=== PATIENT | female | born 1975 | race Caucasian/White ===

== ENCOUNTER 2017-01-17 17:21 | Emergency (ER) | payer OTHER ==
[~2017-01-17 17:21] MED LIST: FISH OIL 10001000 MG PO; LOPRESSOR 25 MG25 MG PO
[2017-01-17 21:16] LABS: HEMOGLOBIN 13.7 gm/dl (12.3-15.3); RED BLOOD COUNT 4.03 M/UL (4.00-5.10); WHITE BLOOD COUNT 17.9 K/UL (4.5-11.0)
[2017-01-17 22:21] LABS: BUN/CREATININE RATIO 10 (0-10)
[2017-06-20] MEDS ORDERED: CHANTIX1 MG PO (21:37)
[2017-06-20] MEDS ORDERED: LIPITOR TAB 2020 MG PO (21:38)
[2017-06-20] MEDS ORDERED: PREDNISONE 10 M10 MG PO (21:38)
[2017-06-20] MEDS ORDERED: PREDNISONE10 MG PO (21:38)
[2017-06-20] MEDS ORDERED: CETIRIZINE HCL10 MG PO (21:39)
[2017-06-20] MEDS ORDERED: VITAMIN D-32000 UNIT PO (21:39)
[2017-06-20] MEDS ORDERED: SPIRIVA18 MCG INH (21:40)
[2017-06-20] MEDS ORDERED: BUSPIRONE HCL15 MG PO (21:41)
[2017-06-20] MEDS ORDERED: MYCOSTATIN100000 UTS PO (21:54)
[2017-06-22] MEDS ORDERED: ROBITUSSIN DM473 ML PO (11:41)
[2017-06-22] MEDS ORDERED: MEDROL DOSEPAK 24 MG PO (11:42)
[2017-06-22] MEDS ORDERED: LEVAQUIN750 MG PO (11:42)
== END 2017-01-17 23:10 | disposition home or self-care (01) ==
LOC: ER1 17:21
PROVIDERS: Specialist/Technologist Athletic Trainer
DX: J18.9 Pneumonia, unspecified organism (principal); D72.829 Elevated white blood cell count, unspecified; E87.6 Hypokalemia; J45.909 Unspecified asthma, uncomplicated; J44.9 Chronic obstructive pulmonary disease, unspecified; F17.200 Nicotine dependence, unspecified, uncomplicated; Z88.1 Allergy status to other antibiotic agents; Z88.5 Allergy status to narcotic agent; Z79.899 Other long term (current) drug therapy
CPT/HCPCS: 36415; 36600; 71250; 80053; 82550; 82553; 82803; 83874; 84484; 85025; 93005; 94640; 94664; 96365; 96366; 96375; 99285; J1956; J2405; J7030

== ENCOUNTER 2017-02-20 07:29 | Observation (INO) | payer OTHER ==
[~2017-02-20] VITALS: Ht 165.1 cm; Wt 65.8 kg
[2017-02-20 08:51] LABS: HEMOGLOBIN 13.7 gm/dl (12.3-15.3); RED BLOOD COUNT 4.13 M/UL (4.00-5.10); WHITE BLOOD COUNT 17.8 K/UL (4.5-11.0)
[2017-02-20 09:17] LABS: BUN/CREATININE RATIO 13 (0-10)
--- NOTE | 2017-02-20 19:00 | NUR ---
SHIFT SUMMARY NOTE: RECEIVED IN SHIFT REPORT PT HAD ARRIVED TO FLOOR APPROX 1830, AND ADMISSION PROCESS HAD NOT BEEN STARTED, AND NO ORDERS HAD BEEN TAKEN OFF AT PRESENT. 7A NURSE STATED THAT PT HAD REQUESTED PAIN MEDICATION UPON ARRIVAL TO FLOOR, AND THAT SHE HAD EXPLAINED IT WOULD BE A LITTLE BIT BEFORE ORDERS WERE TAKEN OFF. 1900- IN ROOM TO ASSESS PT AND BEGIN ADMISSION PROCESS, PT NOT IN ROOM AT THIS TIME. 1914- REVIEWED ORDERS ON CHART, NOTED NO MEDICATIONS FOR PAIN, AND THAT MED REC NOT ADDRESSED PER MD. CALLED DR SOLIS, ADMITTING MD, AND RECONCILED HOME MEDS. AT THIS TIME, ALSO INFORMED MD OF PT REQUESTING PAIN MEDICATION AND ASKED FOR AN ORDER FOR PAIN MED. MD STATED THAT HE WOULD NOT GIVE HER ANYTHING AT THIS TIME UNLESS IT WAS ALREADY ON HER HOME MEDICATION LIST. 1929- PT BACK IN ROOM, NOTED STANDING AT BEDSIDE ARRANGING BELONGINGS IN BAG. ASSESSMENT AND ADMISSION HX COMPLETED AT THIS TIME. NO DISTRESS NOTED. PT SIGNED SMOKING CONSENT AT THIS TIME AND MADE AWARE OF PURPOSE. PT THEN INQUIRED ABOUT PAIN MEDICATION, INFORMED OF CONVERSATION WITH MD. PT BECAME VERY UPSET, STATING "THAT'S WHY I CAME HERE WAS BECAUSE I WAS IN SO MUCH PAIN. I CAN SIT AT HOME AND TAKE BREATHING TREATMENTS AND OXYGEN." PT ASKED AT THIS TIME FOR TO BE CALLED AND REQUEST THAT HE COME SEE HER. INFORMED PT STAFF WOULD DO SO. 1949- RT IN TO SEE PT AT THIS TIME, PT ASKED THAT THEY COME BACK, SHE WAS GOING OUT TO SMOKE. PT WENT OUTSIDE TO SMOKE AT THIS TIME. CALLED DR SOLIS AT THIS TIME, MADE MD AWARE OF THE PATIENT REQUEST THAT HE COME SEE HER, AND AGAIN MADE AWARE OF PT REQUESTING PAIN MEDICATION. EXPLAINED TO MD THAT PT C/O SEVERE PAIN WITH COUGH AND WAS INSISTENT THAT SHE GET SOMETHING. MD AGAIN DENIED REQUEST FOR PAIN MEDICATION AT THIS TIME. REQUESTED COUGH MEDICINE FROM MD, TO HELP WITH PT REPORTS OF COUGH. ORDERS RECEIVED AT THIS TIME FOR TYLENOL 650MG PO Q6HRS PRN PAIN AND ROBITUSSIN AC 10ML PO Q6HRS PRN COUGH, AND THAT NO FURTHER PAIN MEDS WOULD BE GIVEN AT THIS TIME. STATED THAT HE HAD ALREADY SEEN PT IN ER AND WOULD NOT COME BACK TO SEE HER TONIGHT. 2011- PT RETURNED TO FLOOR. RT AND LAB MAD AWARE THAT PT HAD RETURNED SO THEY COULD PERFORM NEEDED DIAGNOSTICS/TREATMENTS. 2014- IN ROOM TO DISASTER DIRECTOR PT IVFS ORDERED. INFORMED PT OF CONVERSATION OF WITH MD AND ORDERS RECEIVED. PT BECAME VERY UPSET STATED THAT SHE WAS UNHAPPY WITH HER DOCTOR, THAT HE TALKED TO HER FOR "ALL OF 5 MINUTES", DID NOT ALLOW HER TO EXPLAIN HER FULL HISTORY, AND THAT SHE THOUGHT HE WAS A LUNG DOCTOR. SHE STATED THAT SHE WANTED ANOTHER MD TO COME SEE HER, AND "I MAY JUST GO ON TO THE HOUSE". 2019- RT IN ROOM TO PERFORM NEB TREATMENT. INFORMED PT THAT STAFF WOULD CALL CONTROL PANEL OPERATOR TO SEE ABOUT CHANGING MDS AND WHAT ELSE COULD BE DONE TO HELP HER. CONTROL PANEL OPERATOR CALLED AND BRIEFED ON SITUATION, ASKED IF SHE WOULD COME TO SEE PT TO FIND OUT WHAT IF ANYTHING WE COULD DO TO HELP HER. STATED THEY WOULD BE HERE SOON POSSIBLE. 2039- PT OFF FLOOR TO GO TO [facility] AND SMOKE. 2104- PT RETURNED TO FLOOR WITH GENTLEMAN ACCOMPANYING HER. 2107- CONTROL PANEL OPERATOR HERE TO SPEAK WITH PT. 2112- INSTRUCTED PER CONTROL PANEL OPERATOR TO CALL VISCOSITY TESTER MD TO REQUEST PAIN MED ORDER, AND INFORM OF RESULTS. MD PAGED AT THIS TIME. 2114- WHILE AWAITING RETURN PAGE FROM , MALE FAMILY CAME TO DOOR OF ROOM VERY ANGRY, WITH PT BAG IN HIS HAND, YELLING AT STAFF "GET HER DISCHARGE PAPERS I AM TAKING HER TO ". RETURNED CALL AT THIS TIME, EXPLAINED REASON FOR CALLING, AND THAT PT MY BE LEAVING AMA. STATED " LORTAB 10MG PO Q8HRS PRN IF SHE STAYS, IF NOT HAVE HER SIGN THE AMA PAPER". INFORMED PT OF NEW ORDER AT THIS TIME, GENTLEMAN STATED "ITS A LITTLE TOO LATE FOR THAT" PT STATED "I DONT FEEL COMFORTABLE BEING HERE WITH A DOCTOR WHO WONT LISTEN TO ME. WITH MY HISTORY PAIN MEDICINE SHOULD NEVER HAVE EVEN BEEN A QUESTION. ITS NOT LIKE I AM A DRUG ADDICT. I AM SICK." EXPLAINED TO PT AND FAMILY MEMBER THAT STAFF WAS VERY SORRY, AND THAT MANY ATTEMPTS HAD BEEN MADE TO OBTAIN PAIN MEDICATION FOR HER, BUT NURSES, STAFF ARE LIMITED ON WHAT THEY CAN DO, AND HAVE TO HAVE ORDERS FOR WHAT THEY ADMINISTER. FAMILY MEMBER THEN STATED "I AM NOT MAD AT YOU OR EVEN THE HOSPITAL, BUT THAT DOCTOR NEEDS TO GO SOMEWHERE ELSE." IVF STOPPED, IV DC'D, AND DRESSING APPLIED. AMA FORM SIGNED PER PT. ENCOURAGED PT TO RETURN IF SYMPTOMS WORSENED. PT STATED "FROM NOW ON I WILL CALL AND SEE IF DR YUEN IS HERE IN THE ER BEFORE I COME, AND I WILL REFUSE TO SEE THIS DOCTOR AGAIN." PT AMBULATED OUT OF ROOM AT THIS TIME.
[2017-02-20] MEDS ORDERED: CYMBALTA60 MG PO (20:18)
[2017-02-20] MEDS ORDERED: TOPAMAX25 MG PO (20:18)
[2017-02-20] MEDS ORDERED: NEURONTIN 400400 MG PO (20:19)
[2017-02-20] MEDS ORDERED: TOPAMAX50 MG PO (20:19)
[2017-02-20] MEDS ORDERED: IBUPROFEN800 MG PO (20:19)
[2017-02-20] MEDS ORDERED: LIORESAL TAB 1010 MG PO (20:21)
[2017-02-20] MEDS ORDERED: CLARITIN-D 121 EACH PO (20:21)
[2017-02-20] MEDS ORDERED: COLACE 100MG C100 MG PO (20:21)
[2017-02-20] MEDS ORDERED: PROTONIX40 MG PO (20:22)
[2017-02-20] MEDS ORDERED: WELLBUTRIN SR100 MG PO (20:22)
[2017-02-20] MEDS ORDERED: SYNTHROID25 MCG PO (20:22)
[2017-02-20] MEDS ORDERED: LIPITOR TAB 2020 MG PO (20:22)
[2017-02-20] MEDS ORDERED: SINGULAIR10 MG PO (20:23)
[2017-02-20] MEDS ORDERED: IMITREX100 MG PO (20:23)
[2017-02-20] MEDS ORDERED: DULERA 200 MCG8.8 GM INH (20:24)
[2017-06-20] MEDS ORDERED: CHANTIX1 MG PO (21:37)
[2017-06-20] MEDS ORDERED: PREDNISONE 10 M10 MG PO (21:38)
[2017-06-20] MEDS ORDERED: PREDNISONE10 MG PO (21:38)
[2017-06-20] MEDS ORDERED: LIPITOR TAB 2020 MG PO (21:38)
[2017-06-20] MEDS ORDERED: CETIRIZINE HCL10 MG PO (21:39)
[2017-06-20] MEDS ORDERED: VITAMIN D-32000 UNIT PO (21:39)
[2017-06-20] MEDS ORDERED: SPIRIVA18 MCG INH (21:40)
[2017-06-20] MEDS ORDERED: BUSPIRONE HCL15 MG PO (21:41)
[2017-06-20] MEDS ORDERED: MYCOSTATIN100000 UTS PO (21:54)
[2017-06-22] MEDS ORDERED: ROBITUSSIN DM473 ML PO (11:41)
[2017-06-22] MEDS ORDERED: MEDROL DOSEPAK 24 MG PO (11:42)
[2017-06-22] MEDS ORDERED: LEVAQUIN750 MG PO (11:42)
== END 2017-02-20 21:15 | disposition left against medical advice (07) ==
LOC: ER1 07:29 → ZEROF 14:24 → MED SURG 4 18:21
PROVIDERS: Emergency Medicine; ADMIT Emergency Medicine
DX: J44.1 Chronic obstructive pulmonary disease with (acute) exacerbation (principal); J20.9 Acute bronchitis, unspecified; J44.0 Chronic obstructive pulmonary disease with (acute) lower respiratory infection; K59.00 Constipation, unspecified; G89.4 Chronic pain syndrome; G43.909 Migraine, unspecified, not intractable, without status migrainosus; K21.9 Gastro-esophageal reflux disease without esophagitis; E78.5 Hyperlipidemia, unspecified; F41.9 Anxiety disorder, unspecified; F32.9 Major depressive disorder, single episode, unspecified; F17.210 Nicotine dependence, cigarettes, uncomplicated; Z88.1 Allergy status to other antibiotic agents; Z79.899 Other long term (current) drug therapy; Z98.890 Other specified postprocedural states
CPT/HCPCS: 36415; 36600; 71010; 80053; 81001; 82550; 82553; 82803; 83605; 83690; 83874; 84484; 84703; 85025; 85379; 87040; 93005; 94640; 94664; 96374; 96375; 99285; G0378; J2270; J2930

== ENCOUNTER 2017-03-12 15:41 | Inpatient (IN) | payer OTHER ==
[~2017-03-12] VITALS: Ht 165.1 cm; Wt 64.6 kg
[~2017-03-12 15:41] MED LIST changes: +CLARITIN-D 121 EACH PO; +COLACE 100MG C100 MG PO; +CYMBALTA60 MG PO; +DULERA 200 MCG8.8 GM INH; +IBUPROFEN800 MG PO; +IMITREX100 MG PO; +LIORESAL TAB 1010 MG PO; +LIPITOR TAB 2020 MG PO; +NEURONTIN 400400 MG PO; +PROTONIX40 MG PO; +SINGULAIR10 MG PO; +SYNTHROID25 MCG PO; +TOPAMAX25 MG PO; +TOPAMAX50 MG PO; +WELLBUTRIN SR100 MG PO
[2017-03-12 17:23] LABS: HEMOGLOBIN 13.3 gm/dl (12.3-15.3); RED BLOOD COUNT 4.04 M/UL (4.00-5.10); WHITE BLOOD COUNT 16.3 K/UL (4.5-11.0)
[2017-03-12 18:04] LABS: BUN/CREATININE RATIO 30 (0-10)
[2017-03-13] MEDS ORDERED: AMITIZA 24 MCG24 MCG PO (02:31)
[2017-03-13] MEDS ORDERED: PHENERGAN 25 MG25 M1 PO (02:32)
[2017-03-13] MEDS ORDERED: NYSTATIN500000 UNI PO (02:32)
[2017-03-13] MEDS ORDERED: PROAIR HFA8.5 GM INH (02:33)
[2017-03-13] MEDS ORDERED: FIORICET TAB1 EA PO (02:34)
[2017-03-13] MEDS ORDERED: VENTOLIN/PROVE0.5 ML INH (02:39)
[2017-03-14 06:17] LABS: HEMOGLOBIN 10.8 gm/dl (12.3-15.3); RED BLOOD COUNT 3.35 M/UL (4.00-5.10); WHITE BLOOD COUNT 11.6 K/UL (4.5-11.0)
[2017-03-14 06:22] LABS: BUN/CREATININE RATIO 13 (0-10)
--- NOTE | 2017-03-14 18:29 | NUR ---
ATTEMPTED TO GIVE PATIENT HER VISTARIL AND POTASSIUM DOSES, PATIENT WAS TOO ASLEEP TO TAKE THEM AT THIS TIME. WILL NOTIFY NIGHT RN SO SHE CAN GIVE THEM WHEN PATIENT AWAKENS.
[2017-03-16 04:04] LABS: HEMOGLOBIN 11.1 gm/dl (12.3-15.3); RED BLOOD COUNT 3.44 M/UL (4.00-5.10)
[2017-03-16 04:09] LABS: WHITE BLOOD COUNT 20.3 K/UL (4.5-11.0)
[2017-03-16 04:25] LABS: BUN/CREATININE RATIO 20 (0-10)
[2017-03-16] MEDS ORDERED: AUGMENTIN TAB875 MG PO (15:11)
[2017-03-16] MEDS ORDERED: IBUPROFEN800 MG PO (15:12)
[2017-03-16] MEDS ORDERED: CHANTIX1 EACH PO (15:15)
[2017-03-16] MEDS ORDERED: MEDROL4 MG PO (15:30)
[2017-06-20] MEDS ORDERED: CHANTIX1 MG PO (21:37)
[2017-06-20] MEDS ORDERED: LIPITOR TAB 2020 MG PO (21:38)
[2017-06-20] MEDS ORDERED: PREDNISONE10 MG PO (21:38)
[2017-06-20] MEDS ORDERED: PREDNISONE 10 M10 MG PO (21:38)
[2017-06-20] MEDS ORDERED: CETIRIZINE HCL10 MG PO (21:39)
[2017-06-20] MEDS ORDERED: VITAMIN D-32000 UNIT PO (21:39)
[2017-06-20] MEDS ORDERED: SPIRIVA18 MCG INH (21:40)
[2017-06-20] MEDS ORDERED: BUSPIRONE HCL15 MG PO (21:41)
[2017-06-20] MEDS ORDERED: MYCOSTATIN100000 UTS PO (21:54)
[2017-06-22] MEDS ORDERED: ROBITUSSIN DM473 ML PO (11:41)
[2017-06-22] MEDS ORDERED: MEDROL DOSEPAK 24 MG PO (11:42)
[2017-06-22] MEDS ORDERED: LEVAQUIN750 MG PO (11:42)
== END 2017-03-16 16:26 | disposition home or self-care (01) | DRG 189 ==
LOC: ER1 15:41 → ZEROF 03-13 01:07 → MED SURG 4 03-13 01:07
PROVIDERS: Emergency Medicine; Family Medicine; Physician Assistant; ADMIT Hospitalist
DX: J96.21 Acute and chronic respiratory failure with hypoxia (principal); J15.9 Unspecified bacterial pneumonia; J44.0 Chronic obstructive pulmonary disease with (acute) lower respiratory infection; D84.9 Immunodeficiency, unspecified; J44.1 Chronic obstructive pulmonary disease with (acute) exacerbation; E87.6 Hypokalemia; F17.210 Nicotine dependence, cigarettes, uncomplicated; Z87.01 Personal history of pneumonia (recurrent); Y95 Nosocomial condition; E78.5 Hyperlipidemia, unspecified; F41.9 Anxiety disorder, unspecified; K21.9 Gastro-esophageal reflux disease without esophagitis; F32.9 Major depressive disorder, single episode, unspecified; E03.9 Hypothyroidism, unspecified; Z82.49 Family history of ischemic heart disease and other diseases of the circulatory system; Z88.3 Allergy status to other anti-infective agents; Z88.8 Allergy status to other drugs, medicaments and biological substances; Z91.018 Allergy to other foods; Z79.51 Long term (current) use of inhaled steroids; Z79.899 Other long term (current) drug therapy
CPT/HCPCS: 36415; 36600; 71010; 71020; 80048; 80053; 80202; 81001; 82550; 82553; 82803; 83605; 83874; 83880; 84484; 84703; 85025; 85027; 85379; 87040; 87070; 87081; 87205; 87278; 87899; 93005; 94640; 94664; 96361; 96365; 96375; 99285; J1650; J1885; J1956; J2270; J2405; J2920; J2930; J3370; J7030; J7050; J7070; Q0177; Q9963

== ENCOUNTER → 2017-04-08 | Outpatient (CLI) | payer OTHER ==
[~2017-04-08] MED LIST changes: +AMITIZA 24 MCG24 MCG PO; +AUGMENTIN TAB875 MG PO; +BUSPIRONE HCL15 MG PO; +CETIRIZINE HCL10 MG PO; +CHANTIX1 EACH PO; +CHANTIX1 MG PO; +FIORICET TAB1 EA PO; +LEVAQUIN750 MG PO; +MEDROL DOSEPAK 24 MG PO; +MEDROL4 MG PO; +MYCOSTATIN100000 UTS PO; +NYSTATIN500000 UNI PO; +PHENERGAN 25 MG25 M1 PO; +PREDNISONE 10 M10 MG PO; +PREDNISONE10 MG PO; +PROAIR HFA8.5 GM INH; +ROBITUSSIN DM473 ML PO; +SPIRIVA18 MCG INH; +VENTOLIN/PROVE0.5 ML INH; +VITAMIN D-32000 UNIT PO
[2017-04-08 09:32] LABS: HEMOGLOBIN 11.9 gm/dl (12.3-15.3); RED BLOOD COUNT 3.64 M/UL (4.00-5.10); WHITE BLOOD COUNT 15.8 K/UL (4.5-11.0)
== END ==
LOC: LAB 08:17
PROVIDERS: Allergy & Immunology
DX: T50.995A Adverse effect of other drugs, medicaments and biological substances, initial encounter (principal); J30.1 Allergic rhinitis due to pollen; H10.45 Other chronic allergic conjunctivitis; B37.0 Candidal stomatitis; J45.50 Severe persistent asthma, uncomplicated; J98.8 Other specified respiratory disorders
CPT/HCPCS: 36415; 82784; 82785; 83520; 85025; 86162; 86353; 86360

== ENCOUNTER → 2021-01-27 | Outpatient (CLI) | payer OTHER ==
[~2021-01-27] MED LIST changes: +ALBUTEROL2.5 MG/3 M INH; +ASPIRIN CHEWABL81 MG PO; +AZITHROMYCIN250 MG PO; +BACTRIM DS TAB1 EACH PO; +CLARITIN-D 241 EACH PO; +CLINDAMYCIN HC150 MG PO; +SPIRIVA RESPIMAT4 GM INH; -SPIRIVA18 MCG INH; +TESSALON PERLE100 MG PO
== END ==
LOC: HEART 5 09:11
DX: R06.02 Shortness of breath (principal); R94.2 Abnormal results of pulmonary function studies; Z87.891 Personal history of nicotine dependence
CPT/HCPCS: 71250; 94010; 94618

== ENCOUNTER 2021-05-02 03:39 | Emergency (ER) | payer OTHER ==
[~2021-05-02 03:39] MED LIST changes: -ALBUTEROL2.5 MG/3 M INH; -ASPIRIN CHEWABL81 MG PO; -AZITHROMYCIN250 MG PO
[2021-05-02 04:55] LABS: RED BLOOD COUNT 4.11 M/UL (4.00-5.10); WHITE BLOOD COUNT 13.2 K/UL (4.5-11.0)
[2021-05-02 05:40] LABS: BUN/CREATININE RATIO 12 (0-10)
[2021-05-02] MEDS ORDERED: ALBUTEROL2.5 MG/3 M INH (08:20)
[2021-05-02] MEDS ORDERED: AZITHROMYCIN250 MG PO (08:20)
[2021-05-02] MEDS ORDERED: ASPIRIN CHEWABL81 MG PO (08:20)
== END 2021-05-02 08:40 | disposition home or self-care (01) ==
LOC: ER1 03:39
PROVIDERS: Physician Assistant Medical
DX: J44.1 Chronic obstructive pulmonary disease with (acute) exacerbation (principal); K21.9 Gastro-esophageal reflux disease without esophagitis; F17.210 Nicotine dependence, cigarettes, uncomplicated; Z88.8 Allergy status to other drugs, medicaments and biological substances; Z20.822 Contact with and (suspected) exposure to COVID-19
CPT/HCPCS: 36600; 71045; 80053; 82550; 82553; 82803; 83874; 84484; 85025; 85379; 87040; 93005; 94664; 96374; 99285; J2930; U0002

== ENCOUNTER → 2021-06-05 | Outpatient (CLI) | payer OTHER ==
[~2021-06-05] MED LIST changes: +ALBUTEROL2.5 MG/3 M INH; +ASPIRIN CHEWABL81 MG PO; +AZITHROMYCIN250 MG PO
== END ==
LOC: HEART 5 05-02 09:00
DX: R07.9 Chest pain, unspecified (principal)
CPT/HCPCS: 78452; 93306; A9502; J2785

== ENCOUNTER → 2021-09-07 | Outpatient (CLI) | payer OTHER | LOC: EMI 11:00 | DX: S13.4XXA Sprain of ligaments of cervical spine, initial encounter (principal); R20.0 Anesthesia of skin; M50.30 Other cervical disc degeneration, unspecified cervical region; M48.02 Spinal stenosis, cervical region; M47.812 Spondylosis without myelopathy or radiculopathy, cervical region | CPT/HCPCS: 72141 ==

== ENCOUNTER → 2021-11-07 | Outpatient (CLI) | payer OTHER | LOC: KOH-I 08:00 | DX: R91.1 Solitary pulmonary nodule (principal) | CPT/HCPCS: 71250 ==

== ENCOUNTER 2021-12-08 18:59 | Inpatient (IN) | payer OTHER ==
[~2021-12-08] VITALS: Ht 165.1 cm; Wt 57.6 kg
[~2021-12-08 18:59] MED LIST changes: -NEURONTIN 400400 MG PO; +NEURONTIN800 MG PO
[2021-12-08 19:34] LABS: HEMOGLOBIN 14.3 gm/dl (12.3-15.3); RED BLOOD COUNT 4.33 M/UL (4.00-5.10); WHITE BLOOD COUNT 13.7 K/UL (4.5-11.0)
[2021-12-08 20:29] LABS: BUN/CREATININE RATIO 28 (0-10)
[2021-12-09] MEDS ORDERED: NITROFURANTOIN100 MG PO (01:56)
[2021-12-09] MEDS ORDERED: COLACE100 MG PO (01:56)
[2021-12-09] MEDS ORDERED: RISPERDAL1 MG PO (01:56)
[2021-12-09] MEDS ORDERED: SINGULAIR10 MG PO (01:57)
[2021-12-09] MEDS ORDERED: CYMBALTA 30 MG30 MG PO (01:58)
[2021-12-09] MEDS ORDERED: MELATONIN5 MG PO (01:58)
[2021-12-09] MEDS ORDERED: MINIPRESS CAP 11 MG PO (01:59)
[2021-12-09] MEDS ORDERED: MOBIC15 MG PO (01:59)
[2021-12-09] MEDS ORDERED: HYDROXYZINE PAM25 MG PO (01:59)
[2021-12-09] MEDS ORDERED: HYDROCODON-ACE1 EAC6 PO (02:00)
[2021-12-09 05:24] LABS: HEMOGLOBIN 17.1 gm/dl (12.3-15.3); RED BLOOD COUNT 5.11 M/UL (4.00-5.10); WHITE BLOOD COUNT 4.7 K/UL (4.5-11.0)
[2021-12-09 05:56] LABS: BUN/CREATININE RATIO 24 (0-10)
[2021-12-09] MEDS ORDERED: FML 0.1% OP SUSP5 ML OU (10:45)
[2021-12-09] MEDS ORDERED: WELLBUTRIN XL150 MG PO (10:46)
[2021-12-09] MEDS ORDERED: VOLTAREN ARTHRI20 GM TOP (10:47)
[2021-12-09] MEDS ORDERED: CYCLOBENZAPRINE10 MG PO (10:47)
[2021-12-09] MEDS ORDERED: TRAZODONE HCL100 MG PO (10:47)
[2021-12-09] MEDS ORDERED: FAMOTIDINE20 MG PO (10:48)
[2021-12-09] MEDS ORDERED: CARDIZEM CD120 MG PO (10:48)
[2021-12-09] MEDS ORDERED: ORILISSA150 MG PO (10:48)
[2021-12-09] MEDS ORDERED: ONDANSETRON ODT8 MG PO (10:49)
[2021-12-09] MEDS ORDERED: SUMATRIPTA6 MG/0.52 SQ (10:49)
[2021-12-09] MEDS ORDERED: TIZANIDINE HCL4 MG PO (10:50)
[2021-12-09] MEDS ORDERED: ATORVASTATIN CA40 MG PO (10:50)
[2021-12-09] MEDS ORDERED: TRELEGY ELLIPT1 EACH INH (10:51)
[2021-12-09] MEDS ORDERED: ONABOTULINUMTOXINA INJ (10:51)
[2021-12-11 05:39] LABS: BUN/CREATININE RATIO 18 (0-10)
[2021-12-11 06:56] LABS: HEMOGLOBIN 10.2 gm/dl (12.3-15.3); RED BLOOD COUNT 3.12 M/UL (4.00-5.10); WHITE BLOOD COUNT 17.1 K/UL (4.5-11.0)
[2021-12-12 05:28] LABS: HEMOGLOBIN 8.8 gm/dl (12.3-15.3)
[2021-12-12 05:32] LABS: RED BLOOD COUNT 2.73 M/UL (4.00-5.10)
[2021-12-12 05:52] LABS: BUN/CREATININE RATIO 12 (0-10)
[2021-12-13 05:36] LABS: HEMOGLOBIN 8.8 gm/dl (12.3-15.3); RED BLOOD COUNT 2.77 M/UL (4.00-5.10)
[2021-12-13 05:37] LABS: WHITE BLOOD COUNT 9.7 K/UL (4.5-11.0)
[2021-12-13 06:04] LABS: BUN/CREATININE RATIO 16 (0-10)
[2021-12-13] MEDS ORDERED: PERCOCET 5-3251 EACH PO (13:53)
[2021-12-14 03:43] LABS: RED BLOOD COUNT 2.85 M/UL (4.00-5.10); WHITE BLOOD COUNT 8.9 K/UL (4.5-11.0)
[2021-12-14 04:35] LABS: BUN/CREATININE RATIO 17 (0-10)
== END 2021-12-14 17:22 | disposition home health service (06) | DRG 330 ==
LOC: ER1 18:59 → CDU 21:10 → CCU 12-09 02:26 → MED SURG 4 12-13 15:42
PROVIDERS: Physician Assistant; ADMIT Surgery
PROC: 0DBN0ZZ Excision of Sigmoid Colon, Open Approach (ICD-10-PCS; principal; 2021-12-09)
DX: K57.20 Diverticulitis of large intestine with perforation and abscess without bleeding (principal); E44.1 Mild protein-calorie malnutrition; Z68.1 Body mass index [BMI] 19.9 or less, adult; Z20.822 Contact with and (suspected) exposure to COVID-19; F41.9 Anxiety disorder, unspecified; G40.909 Epilepsy, unspecified, not intractable, without status epilepticus; K59.09 Other constipation; I10 Essential (primary) hypertension; J44.9 Chronic obstructive pulmonary disease, unspecified; F17.200 Nicotine dependence, unspecified, uncomplicated; E78.5 Hyperlipidemia, unspecified; E86.0 Dehydration; K21.9 Gastro-esophageal reflux disease without esophagitis; M19.90 Unspecified osteoarthritis, unspecified site; J98.4 Other disorders of lung; Z90.49 Acquired absence of other specified parts of digestive tract; Z98.890 Other specified postprocedural states; Z79.899 Other long term (current) drug therapy; Z80.0 Family history of malignant neoplasm of digestive organs; Z88.8 Allergy status to other drugs, medicaments and biological substances; Z88.5 Allergy status to narcotic agent
CPT/HCPCS: 36415; 71045; 80048; 80053; 81001; 82550; 82553; 83605; 83690; 83874; 84484; 84703; 85025; 85027; 87086; 93005; 94760; 96374; 96375; 96376; 97116-GP-CQ; 97162; 97530-GP-CQ; 99285; C1751; C9113; J0360; J1100; J1170; J1650; J2001; J2185; J2250; J2270; J2370; J2405; J2543; J2704; J3010; J3370; J3480; J7030; J7050; J7070; J7120; Q9967; U0002

== ENCOUNTER → 2022-02-16 | Outpatient (CLI) | payer OTHER ==
[~2022-02-16] MED LIST changes: +ATORVASTATIN CA40 MG PO; +CARDIZEM CD120 MG PO; +COLACE100 MG PO; +CYCLOBENZAPRINE10 MG PO; +CYMBALTA 30 MG30 MG PO; +FAMOTIDINE20 MG PO; +FML 0.1% OP SUSP5 ML OU; +HYDROCODON-ACE1 EAC6 PO; +HYDROXYZINE PAM25 MG PO; +MELATONIN5 MG PO; +MINIPRESS CAP 11 MG PO; +MOBIC15 MG PO; +NITROFURANTOIN100 MG PO; +ONABOTULINUMTOXINA INJ; +ONDANSETRON ODT8 MG PO; +ORILISSA150 MG PO; +PERCOCET 5-3251 EACH PO; +RISPERDAL1 MG PO; +SUMATRIPTA6 MG/0.52 SQ; +TIZANIDINE HCL4 MG PO; +TRAZODONE HCL100 MG PO; +TRELEGY ELLIPT1 EACH INH; +VOLTAREN ARTHRI20 GM TOP; +WELLBUTRIN XL150 MG PO
== END ==
LOC: KOH-I 11:18
DX: M48.02 Spinal stenosis, cervical region (principal); M25.78 Osteophyte, vertebrae; R93.7 Abnormal findings on diagnostic imaging of other parts of musculoskeletal system; M43.12 Spondylolisthesis, cervical region; M47.812 Spondylosis without myelopathy or radiculopathy, cervical region
CPT/HCPCS: 72040